=== PATIENT | female | born 1935 | race Caucasian/White ===

== ENCOUNTER → 2017-07-06 | Day surgery (SDC) | payer MEDICARE, OTHER ==
--- NOTE | 2017-07-05 16:02 | Diagnostic Imaging Report ---
PROCEDURE: Frontal and lateral views of the chest. COMPARISON: None. INDICATIONS: PRE OPERATIVE CHEST X-RAY FOR UROLOGY SURGERY FINDINGS: Lines/tubes: None. Lungs: The lungs are well inflated and clear. There is no evidence of pneumonia or pulmonary edema. Pleura: There is no pleural effusion or pneumothorax. Heart and mediastinum: Cardiac silhouette is unremarkable. Pulmonary vasculature is normal. Atherosclerotic calcification of the aortic arch. Bones: No acute bony abnormality. Moderate degenerative disc changes in the thoracic spine. IMPRESSION: 1. No acute cardiopulmonary abnormalities. Chin Santos M.D. Dictated by: Chin Santos M.D. on 07/05/2017 at 16:05 Electronically approved by: Chin Santos M.D. on 07/05/2017 at 16:05
[2017-07-05 16:11] LABS: BASOPHILS % 0.3 % (0.0-1.0); EOSINOPHILS # (AUTO) 0.1 (0.0-0.4); HEMATOCRIT 38.1 % (34.2-44.1); HEMOGLOBIN 12.4 g/dL (12.0-16.0); LYMPHOCYTES # (AUTO) 1.7 (1.0-3.2); LYMPHOCYTES % 25.7 % (18.0-39.1); MEAN CORPUSCULAR HEMOGLOBIN 29.3 pg (28-32); MEAN CORPUSCULAR HGB CONC 32.5 g/dL (31-35); MEAN CORPUSCULAR VOLUME 90.1 fL (81-99); MONOCYTES # (AUTO) 0.7 (0.2-0.8); MONOCYTES % 11.1 % (4.4-11.3); NEUTROPHILS # (AUTO) 4.1 (2.1-6.9); NEUTROPHILS % 61.6 % (38.7-80.0); PLATELET COUNT 154 x10e3/uL (140-360); RED BLOOD COUNT 4.23 x10e6/uL (3.6-5.1); RED CELL DISTRIBUTION WIDTH 14.7 % (11.7-14.4)
[~2017-07-06] MED LIST: AMOXICILLIN250 MG PO; ASA81 MG PO; BRINTELLIX PO; DEXAMETHASONE SOD PHOS INJ 4 MG/ML VIAL ONE; DOXYCYCLINE150 MG PO; EPHEDRINE SULFATE INJ 50 MG/10 ML SYR ONE; FENTANYL CITRATE/PF 100MCG/2 ML INJ ONE; GENTAMICIN 80MG/NS 100 ML 100 ML IV ONE; IOPAMIDOL 610MG/1ML 300 MG/ML VIAL IV ONE; LIDOCAINE HCL 2% LOCAL INJ 5 ML SDV VIAL INJ ONE; METOPROLOL TART25 MG PO; METRONIDAZOLE500 MG PO; MULTAQ400 MG PO; ONDANSETRON HCL INJ 2 MG/ML VIAL ONE; PROBIOTIC PO; PROPOFOL IV EMULSION 10 MG/ML 20 ML VIAL ONE; SERTRALINE HCL50 MG PO; SEVOFLURANE INHAL SOLN 250 ML PEN BTL ONE; TRAMADOL HCL50 M1 PO; VIIBRYD40 MG PO; WELLBUTRIN75 MG PO; XARELTO20 MG PO; Z.0.DIGOXIN125 MCG PO; Z.0.LEXAPRO20 MG PO; Z.0.OMEPRAZOLE20 M1 PO; Z.1.ALPRAZOLAM0.25 M PO
--- OUTSIDE RECORDS SUMMARY | 2017-07-06 07:47 | XMS REPORT | Clinical Summary ---
Author Author [facility] Address Unknown Phone Unavailable Care Team Providers Care Portable Router Operator Name Role Phone Asked, Pcp PCP Unavailable Allergies Active Allergy Reactions Severity Noted Date Comments Clarithromycin 01/04/2017 Current Medications Prescription Sig. Disp. Refills Start End Date Status Date MULTAQ 400 mg tablet Take 400 mg by mouth 2 2 12/14/19 Active (two) times a day. 17 omeprazole (PriLOSEC) 20 Take 20 mg by mouth 2 0 11/22/19 Active MG capsule (two) times a day. 17 traMADol (ULTRAM) 50 mg Take 50 mg by mouth 3 Active tablet (three) times a day. aspirin (ECOTRIN) 81 MG Take 81 mg by mouth Active enteric coated tablet daily. metoprolol tartrate Take 12.5 mg by mouth 2 Active (LOPRESSOR) 25 mg tablet (two) times a day. busPIRone (BUSPAR) 15 MG Take 15 mg by mouth 2 0 12/16/19 01/06/20 Discontin tablet (two) times a day. 17 17 ued mirtazapine (REMERON) 15 Take 15 mg by mouth 0 11/15/19 01/06/20 Discontin MG tablet nightly as needed. 17 17 ued nitrofurantoin, Take 100 mg by mouth 2 0 11/06/19 01/06/20 Discontin macrocrystal-monohydrate, (two) times a day. FOR 7 17 17 ued (MACROBID) 100 MG capsule DAYS Active Problems Not on file Encounters Date Type Specialty Care Team Description 01/05/2017 Hospital Gastroenterology Jian Hernandez MD Encounter 01/05/2017 Anesthesia Gastroenterology Joaquin Boyer MD Event 01/05/2017 Procedure Pass Gastroenterology 01/05/2017 Surgery Gastroenterology Jian Hernandez MD ESOPHAGOGASTRODUODENOSCOP Y (EGD) after 07/05/2016 Family History Medical History Relation Name Comments Hypertension Father Cancer Maternal Grandfather Diabetes Mother Relation Name Status Comments Father Maternal Grandfather PROSTATE CA Mother Social History Tobacco Use Types Packs/Day Years Used Date Former Smoker Cigarettes Quit: 02/05/1987 Smokeless Tobacco: Never Used Alcohol Use Drinks/Week oz/Week Comments No Sex Assigned at Date Recorded Not on file Last Filed Vital Signs Vital Sign Reading Time Taken Blood Pressure 140/69 01/05/2017 9:40 AM WATCHMAKER APPRENTICE Pulse 50 01/05/2017 9:40 AM WATCHMAKER APPRENTICE Temperature 35.9 C (96.7 F) 01/05/2017 9:23 AM WATCHMAKER APPRENTICE Respiratory Rate 14 01/05/2017 9:40 AM WATCHMAKER APPRENTICE Oxygen Saturation 98% 01/05/2017 9:40 AM WATCHMAKER APPRENTICE Inhaled Oxygen - - Concentration Weight 64 kg (141 lb) 01/05/2017 8:15 AM WATCHMAKER APPRENTICE Height 154.9 cm (5' 1") 01/05/2017 8:15 AM WATCHMAKER APPRENTICE Body Mass Index 26.64 01/05/2017 8:15 AM WATCHMAKER APPRENTICE Plan of Treatment Not on file Procedures Procedure Name Priority Date/Time Associated Diagnosis Comments ESOPHAGOGASTRODUODENOSCOP 01/05/2017 GERD K21.9 Y (EGD) 11:30 AM WATCHMAKER APPRENTICE after 07/05/2016 Results * Surgical pathology request (01/05/2017 9:17 AM) Component Value Ref Range Surgical pathology report See link below for PDF Lab Report Result status This is Final Report to [id number] Specimen Performing Laboratory [facility] DEPARTMENT OF PATHOLOGY AND GENOMIC MEDICINE [address] [place] [address] [place] [address] * POC glucose (01/05/2017 8:40 AM) Component Value Ref Range POC glucose 85 65 - 99 mg/dL Comment: Meter ID: [id number] Designer/Writer: Lauren Higgins Specimen Performing Laboratory [facility] DEPARTMENT OF PATHOLOGY AND GENOMIC MEDICINE [address] [place] [address] [place] [address] * ECG 12 lead (01/05/2017 8:27 AM) Component Value Ref Range Ventricular rate 50 Atrial rate 50 IL interval 150 QRSD interval 72 QT interval 466 QTC interval 424 P axis 1 64 QRS axis 1 49 T wave axis 32 EKG impression Sinus bradycardia-Possible Left atrial enlargement-Borderline ECG-No previous ECGs available- Specimen Performing Laboratory [facility] [address] [place] [address] after 07/05/2016 Insurance Payer Benefit Subscriber ID Type Phone Address Plan / Group MEDICARE MEDICARE xxxxxxxxxx Medicare [place] B [employer] [place] [employer] x[employer]xx-xx [employer] [place] [address]
--- OUTSIDE RECORDS SUMMARY | 2017-07-06 07:47 | XMS REPORT ---
Author Author [facility] Address Unknown Phone Unavailable Care Team Providers Care Storage Facility Housekeeper Name Role Phone MARIELA GARCIA Unavailable Unavailable Problems This patient has no known problems. Allergies, Adverse Reactions, Alerts This patient has no known allergies or adverse reactions. Medications This patient has no known medications. Results Test Description Test Time Test Comments Text Results Atomic Results Result Comments CHEST 2 VIEWS [place] [address] Patient Name: ADRIÁN SINGLETON MR #: [id number] : 1935 Age/Sex: 81/F Req #: [id number] [facility] Physician: Ordered by: JEFF ERICKSON MD Report #: [id number] Location: OR Room/Bed: Procedure: [id number] DX/CHEST 2 VIEWS Exam Date: 07/05/17 Exam Time: 1530 REPORT STATUS: Signed PROCEDURE: Frontal and lateral views of the chest. COMPARISON: None. INDICATIONS: PRE OPERATIVE CHEST X-RAY FOR UROLOGY SURGERY FINDINGS: Lines/tubes: None. Lungs: The lungs are well inflated and clear. There is no evidence of pneumonia or pulmonary edema. Pleura: There is no pleural effusion or pneumothorax. Heart and mediastinum: Cardiac silhouette is unremarkable. Pulmonary vasculature is normal. Atherosclerotic calcification of the aortic arch. Bones: No acute bony abnormality. Moderate degenerative disc changes in the thoracic spine. IMPRESSION: 1. No acute cardiopulmonary abnormalities. Jacoby Santos M.D. Dictated by: Jacoby Santos M.D. on 07/05/2017 at 16:05 Electronically approved by: Jacoby Santos M.D. on 07/05/2017 at 16:05 Dictated By: JACOBY SANTOS MD 1605 Transcribed By: ELYSE on 07/05/17 1605 COPY TO: JEFF ERICKSON MD
--- NOTE | 2017-07-06 12:24 | Diagnostic Imaging Report ---
PROCEDURE: X-RAY RETROGRADE PYELOGRAM COMPARISON: None. INDICATIONS: Not provided. FINDINGS: Contrast was injected into the left ureter without evidence of stricture or filling defect. The collecting system filled normally. Contrast was injected into the right ureter. No evidence of stricture or filling defect. The collecting system filled normally. Cumulative fluoro time: 00:00:22 Cumulative area dose product: 129.48xZzif5 Cumulative air kerma: 3.57 mGy CONCLUSION: Retrograde pyelogram as described above. Dictated by: Lalo Tucker M.D. on 07/06/2017 at 12:28 Electronically approved by: Lalo Tucker M.D. on 07/06/2017 at 12:28
--- NOTE | 2017-07-08 06:35 | Operative Report ---
DATE OF PROCEDURE: July 06, 2017 PREOPERATIVE DIAGNOSES: 1. Multiple chronic urinary tract infections. 2. Clinical signs and symptoms of interstitial cystitis. POSTOPERATIVE DIAGNOSES: 1. Multiple chronic urinary tract infections. 2. Clinical signs and symptoms of interstitial cystitis. 3. Urethral stricture disease. 4. Grade 2 cystocele. 5. Atrophic vaginitis. PROCEDURES: 1. Cystourethroscopy with urethral calibration and dilation (entirely separate procedure for the urethral stricture disease). 2. Cystourethroscopy with hydrodistention (entirely separate procedure for the clinical signs and symptoms of interstitial cystitis). 3. Cystourethroscopy with left ureteral catheterization and left retrograde pyelogram (entirely separate procedure for multiple chronic urinary tract infections). 4. Cystourethroscopy with right ureteral catheterization and right retrograde pyelogram (separate procedure for multiple chronic urinary tract infections). 5. Supervision of fluoroscopy. 6. Interpretation of retrograde pyelography. ANESTHESIA: General. ESTIMATED BLOOD LOSS: Minimal. COMPLICATIONS: None. INDICATIONS FOR PROCEDURE: Ms. Anthony is an 81-year-old female with multiple chronic urinary tract infections and pelvic pain. She and I had a long discussion regarding the alternatives, risks and benefits including doing nothing, cystoscopy, IVP, retrograde pyelograms, renal ultrasound, and hydrodistention. She voiced understanding of the options, alternatives, risks, and benefits, and elected to proceed. PROCEDURE IN DETAIL: After informed consent was obtained, the patient was taken to the operative suite and placed supine on the operating table. She underwent general anesthesia by the anesthesia services. She was placed in dorsal lithotomy position and sterilely prepped and draped in a standard fashion for cystoscopy. Note, externally there was severe atrophic vaginitis and grade 2 cystocele. Attempt was made to catheterize the urethra and this failed. It was calibrated to 14-Azerbaijani, dilated to 22-Azerbaijani. A 22.5-Azerbaijani cystoscope was inserted per urethra. Panendoscopy of the bladder revealed no tumors and no stones. A hydrodistention was performed in the standard fashion revealed a capacity of 800 mL, no glomerulations, no Hunner's ulcers. Bilateral retrograde pyelograms were performed, which were normal. The bladder was then drained. The patient was then awakened from anesthesia and transported to the recovery room in excellent condition. SUPERVISION OF FLUOROSCOPY AND INTERPRETATION OF RETROGRADE PYELOGRAPHY: I was present throughout the entire procedure and I supervised the use of fluoroscopy. There was no radiologist present at any time during this procedure. Attention was turned towards the left and right ureteral orifices, which were catheterized with an 8-Azerbaijani cone-tipped catheter. In retrograde fashion, contrast was injected, revealing delicate ureters, delicate pelvicaliceal systems, no evidence of filling defects, no evidence of hydronephrosis. IMPRESSION: Normal retrograde pyelograms. Job#: [id number]
== END | disposition home or self-care (01) ==
LOC: OR 07:42
PROVIDERS: ATTEND Urology
DX: N39.0 Urinary tract infection, site not specified (principal); N35.9 Urethral stricture, unspecified; N81.10 Cystocele, unspecified; N95.2 Postmenopausal atrophic vaginitis; M19.90 Unspecified osteoarthritis, unspecified site; F41.9 Anxiety disorder, unspecified; K21.9 Gastro-esophageal reflux disease without esophagitis; Z01.810 Encounter for preprocedural cardiovascular examination; Z01.812 Encounter for preprocedural laboratory examination; Z01.818 Encounter for other preprocedural examination; Z79.02 Long term (current) use of antithrombotics/antiplatelets; Z85.72 Personal history of non-Hodgkin lymphomas; Z87.891 Personal history of nicotine dependence
CPT/HCPCS: 36415; 52281; 71046; 74420; 85025; 93005; C1758; J1100; J1580; J2001; J2405; Q9967